=== PATIENT | female | born 2000 | race Caucasian/White ===

== ENCOUNTER 2020-04-25 10:58 | Emergency (ER) | payer OTHER ==
[~2020-04-25] VITALS: Ht 157.5 cm; Wt 106.0 kg
[2020-04-25 10:59] VITALS: BP 124/78
[2020-04-25 11:51] LABS: BASO % 0.4 % (0.0-1.0); EOS # 0.2 10^3/uL (0.0-0.5); HEMATOCRIT 42.4 % (36.0-47.0); HEMOGLOBIN 13.7 g/dl (12.0-15.5); LYMPH # 2.2 10^3/uL (1.5-5.0); LYMPH % 29.2 % (24.0-44.0); MEAN CORPUSCULAR HEMOGLOBIN 25.9 pg (27.0-33.0); MEAN CORPUSCULAR HGB CONC 32.3 g/dl (32.0-36.5); MEAN CORPUSCULAR VOLUME 80.3 fl (80.0-96.0); MONO # 0.6 10^3/uL (0.0-0.8); MONO % 8.1 % (0.0-5.0); NEUTROPHILS # 4.5 10^3/uL (1.5-8.5); NEUTROPHILS % 60.2 % (36.0-66.0); PLATELET COUNT, AUTOMATED 334 10^3/uL (150-450); RED BLOOD COUNT 5.28 10^6/uL (4.00-5.40); WHITE BLOOD COUNT 7.5 10^3/uL (4.0-10.0)
[2020-04-25] MEDS ORDERED: ISOVUE-370 76% 100ML VIAL As Ordered ONE (11:58)
--- NOTE | 2020-04-25 12:18 | REP ---
INDICATION: right sided tonsil swelling/pain; r/o abscess. COMPARISON: None. TECHNIQUE: Helical scanning is acquired. 3 mm axial images re-formatted. Coronal and sagittal MPR images are generated. CT contrast dose is 75 mL of intravenous Isovue 370. FINDINGS: Preliminary digital cash checker radiograph is unremarkable. There is no evidence of paranasal sinus disease. Right nasal a alert jewelry is noted. No bony destructive lesion is appreciated. Lung apices are clear. Thyroid lobes are normal and symmetric. Submandibular and parotid glands are intact and unremarkable. There is mild bilateral anterior cervical lymphadenopathy. Largest left anterior cervical lymph node measures 3.4 x 1.3 by 1.6 cm. The largest lymph node on the right measures 2.6 by 1.1 by 1.8 cm. The tonsillar is soft tissues are somewhat hypertrophied but there is no evidence of tonsillar or peritonsillar abscess. Adenoidal soft tissues are unremarkable. Floor of mouth and tongue base are intact and unremarkable. No glottic or subglottic airway lesion is seen. IMPRESSION: Mild prominence of the tonsils without evidence of tonsillar or peritonsillar abscess. There is a mild bilateral anterior cervical lymphadenopathy. Otherwise negative. <Electronically signed by Izaiah Bianchi > 04/25/20 [id number]
[2020-04-25 12:36] LABS: MONO REFLEX EBV COMP NEGATIVE (NEGATIVE)
[2020-04-25] MEDS ORDERED: LIDO2SOL17 PO (13:01)
[2020-04-26 16:08] LABS: EBV VIRAL CAPSID AG IgG 80.7 U/mL (0.0-17.9); EBV VIRAL CAPSID AG IgM <36.0 U/mL (0.0-35.9)
== END 2020-04-25 13:20 | disposition home or self-care (01) ==
LOC: M ED 10:58
DX: J02.9 Acute pharyngitis, unspecified (principal)
CPT/HCPCS: 36415; 70491; 80047; 84702; 85025; 86308; 86664; 86665; 99284; Q9967

== ENCOUNTER 2020-07-22 13:03 | Emergency (ER) | payer OTHER, SELFPAY ==
[~2020-07-22] VITALS: Ht 152.4 cm; Wt 107.9 kg
[~2020-07-22 13:03] MED LIST: LIDO2SOL17 PO
[2020-07-22] MEDS ORDERED: ZOLO50TA PO (13:15)
[2020-07-22] MEDS ORDERED: BUPR15TA PO (13:15)
[2020-07-22] MEDS ORDERED: ADDE10CA3 PO (13:15)
[2020-07-22 14:39] LABS: BASO % 0.4 % (0.0-1.0); EOS # 0.1 10^3/uL (0.0-0.5); EOS % 0.6 % (0.0-3.0); HEMATOCRIT 44.7 % (36.0-47.0); HEMOGLOBIN 14.6 g/dl (12.0-15.5); LYMPH # 1.8 10^3/uL (1.5-5.0); LYMPH % 22.7 % (24.0-44.0); MEAN CORPUSCULAR HEMOGLOBIN 26.1 pg (27.0-33.0); MEAN CORPUSCULAR HGB CONC 32.7 g/dl (32.0-36.5); MONO # 0.4 10^3/uL (0.0-0.8); MONO % 4.6 % (0.0-5.0); NEUTROPHILS # 5.7 10^3/uL (1.5-8.5); NEUTROPHILS % 71.4 % (36.0-66.0); PLATELET COUNT, AUTOMATED 336 10^3/uL (150-450); RED BLOOD COUNT 5.59 10^6/uL (4.00-5.40)
--- NOTE | 2020-07-22 15:37 | REP ---
INDICATION: suprapubic, left pelvic pain. COMPARISON: None TECHNIQUE: Transvesical and transvaginal imaging FINDINGS: The uterus measures 7.6 x 2.8 x 3.9 cm. The parenchymal echo pattern is within normal limits. There is a specular reflection within the endometrial cavity. The tip of the artifact does not reach the fundal portion of the uterus. There is no free fluid. The right ovary measures 3.8 x 1.8 x 2.7 cm and is within normal limits with an RI 0.55 Left ovary measures 2.3 x 2.4 x 1.7 cm and is within normal limits with an RI of 0.58. The urinary bladder was empty. IMPRESSION: IUD in place as described above. There is no evidence of an abnormality. <Electronically signed by Manny Contreras > 07/22/20 [id number]
[2020-07-22 16:14] LABS: CHLAMYDIA DNA AMPLIFICATION NEGATIVE (NEGATIVE); GC DNA AMPLIFICATION NEGATIVE (NEGATIVE)
--- NOTE | 2020-07-22 16:31 | REP ---
INDICATION: LLQ pain radiating to back, hematuria, r/o stone. COMPARISON: None TECHNIQUE: Noncontrast enhanced stone protocol FINDINGS: The lung bases are clear. Limited evaluation of the solid intra-organs and gallbladder show no gross abnormalities. Limited evaluation of the pancreas, adrenal glands, and kidneys show no gross abnormalities. There is no nephroureterolithiasis, hydronephrosis, or hydroureter. There are no urinary bladder calcifications. Limited evaluation of the bowel loops and the mesenteries show no gross abnormalities. There is no free fluid or free air. There is no evidence of a mass or adenopathy. There is a radiodensity in the uterus consistent with an IUD. Bone window technique throughout the examination shows the osseous structures to be within normal limits. IMPRESSION: CT findings are within normal limits as described above. <Electronically signed by Manny Contreras > 07/22/20 [id number]
[2020-07-22 16:41] VITALS: BP 131/78
== END 2020-07-22 16:42 | disposition home or self-care (01) ==
LOC: M ED 13:03
DX: R10.2 Pelvic and perineal pain (principal); Z97.5 Presence of (intrauterine) contraceptive device; F41.9 Anxiety disorder, unspecified

== ENCOUNTER → 2020-09-19 | Outpatient (REF) | payer OTHER ==
[~2020-09-19] MED LIST changes: +ADDE10CA3 PO; +BUPR15TA PO; +ZOLO50TA PO
[2020-09-19 15:36] LABS: FREE T4 0.95 NG/DL (0.78-1.33); THYROID STIMULATING HORMONE 2.36 uIU/ML (0.463-3.98)
[2020-09-22 15:07] LABS: TESTOSTERONE FREE (DIRECT) 1.3 pg/mL (Not Estab.)
== END ==
LOC: M PLALAB 12:18
PROVIDERS: ATTEND Advanced Practice Midwife
DX: R63.5 Abnormal weight gain (principal); L70.0 Acne vulgaris